=== PATIENT | male | born 1950 | race Caucasian/White ===

== ENCOUNTER 2017-03-16 15:27 | Inpatient (IN) | payer OTHER, MEDICAID ==
[~2017-03-16] VITALS: Ht 177.8 cm; Wt 83.1 kg
[2017-03-16] MEDS ORDERED: IMODIUM A-D2 M3 PO (16:05)
[2017-03-16 16:37] LABS: CALCIUM 8.6 mg/dL (8.5-10.1); CARBON DIOXIDE 31.9 mmol/L (21-32); CHLORIDE SERUM 98 mmol/L (98-107); CREATININE SERUM 0.8 mg/dL (0.7-1.3); GFR1 > 60 mL/min; GLUCOSE SERUM 108 mg/dL (74-106); SODIUM SERUM 136 mmol/L (136-145)
[2017-03-16 16:40] LABS: BASOPHIL % 0.4 % (0-2); PLATELET COUNT 183 x10^3mcL (130-400)
[2017-03-16 16:47] LABS: ALKALINE PHOSPHATASE 90 U/L (46-116); ALT/SGPT 17 U/L (16-63); AST/SGOT 18 U/L (15-37); BILIRUBIN TOTAL 0.57 mg/dL (0.20-1.00); TOTAL PROTEIN, SERUM 7.9 g/dL (6.4-8.2)
[2017-03-16 16:48] LABS: ALBUMIN 2.6 g/dL (3.4-5.0); RED CELL DISTRIBUTION WIDTH 17.4 % (11.5-14.5)
[2017-03-16 17:42] LABS: microscopic required? NO
[2017-03-16 17:53] LABS: urine erythrocyte NEGATIVE (NEGATIVE)
[2017-03-16 19:09] LABS: AMPHETAMINE QUAL UR NONE DETECTED (NEG <=1000)
[2017-03-16 19:12] LABS: CHOLESTEROL/HDL RATIO 3.3; MAGNESIUM 1.8 mg/dL (1.8-2.4); PHOSPHOROUS 4.1 mg/dL (2.5-4.9)
[2017-03-16 19:14] VITALS: BP 107/75
[2017-03-16 19:19] LABS: T3 TOTAL 1.05 ng/mL
[2017-03-16 19:20] LABS: FREE T4 1.29 ng/dL (0.76-1.46); T4(THYROXINE) 8.4 ug/dL (4.7-13.3)
[2017-03-16 20:40] VITALS: BP 107/75
[2017-03-17 05:53] VITALS: BP 109/69
[2017-03-17 06:09] LABS: BASOPHIL % 0.4 % (0-2); PLATELET COUNT 165 x10^3mcL (130-400)
[2017-03-17 06:17] LABS: RED CELL DISTRIBUTION WIDTH 17.5 % (11.5-14.5)
[2017-03-17 06:31] LABS: CALCIUM 8.3 mg/dL (8.5-10.1); CARBON DIOXIDE 32.4 mmol/L (21-32); CHLORIDE SERUM 103 mmol/L (98-107); CREATININE SERUM 0.7 mg/dL (0.7-1.3); GFR1 > 60 mL/min; GLUCOSE SERUM 85 mg/dL (74-106); POTASSIUM SERUM 4.1 mmol/L (3.5-5.1); SODIUM SERUM 140 mmol/L (136-145)
[2017-03-17 09:17] VITALS: BP 97/58
[2017-03-17 14:11] VITALS: BP 107/70
[2017-03-17] MEDS ORDERED: LEVAQUIN750 MG PO (17:55)
[2017-03-17] MEDS ORDERED: CLEOCIN HCL300 MG PO (17:57)
[2017-03-17] MEDS ORDERED: LAC PO (17:58)
[2017-03-17] MEDS ORDERED: COL100 PO (17:59)
[2017-03-17] MEDS ORDERED: THERA TABS1 TAB PO (17:59)
[2017-03-17] MEDS ORDERED: ALBUTEROL SULFAT3 ML NEB (18:02)
[2017-03-17 18:53] VITALS: BP 99/60
[2017-03-17 19:02] VITALS: BP 99/60
== END 2017-03-17 20:49 | DRG 177 ==
LOC: ED 15:27 → DU 17:45
PROVIDERS: Emergency Medicine; ADMIT Family Medicine
DX: J69.0 Pneumonitis due to inhalation of food and vomit (principal); E43 Unspecified severe protein-calorie malnutrition; C78.01 Secondary malignant neoplasm of right lung; E11.65 Type 2 diabetes mellitus with hyperglycemia; D50.9 Iron deficiency anemia, unspecified; Z99.81 Dependence on supplemental oxygen; Z68.26 Body mass index [BMI] 26.0-26.9, adult
CPT/HCPCS: 36600; 83880; 84439; J1956; J3490; J7030; J7613; J7644; Q0092